=== PATIENT | male | born 1960 | race Caucasian/White ===

== ENCOUNTER 2018-12-19 09:17 | Observation (INO) | payer OTHER ==
[2018-12-19] MEDS ORDERED: NITROGLYCERIN OINT 1 INCH/GM PACKET TOPICAL STA (09:24)
--- NOTE | 2018-12-19 09:27 | ED ---
General Adult HPI - General Chief complaint: Chest Pain Stated complaint: Chest pain Time Seen by Provider: 12/19/18 09:20 Source: patient, RN notes reviewed Mode of arrival: EMS Limitations: no limitations - History of Present Illness Initial comments: This is a 58-year-old male who presents emergency Department with a past medical history significant for coronary artery disease. Patient has had bypass surgery and a stent placed. Patient also has history of high blood pressure high cholesterol. Patient since the emergency department because at 5:00 this morning he was having chest pain and some diaphoresis. Patient also states she's very short of breath at that time. Patient states since then he has taken an aspirin. Patient also states she took nitroglycerin the emesis but that did not help. Patient states currently he does not feel short of breath and denies any chest pain. Patient denies any recent fever chills or cough. Patient denies any abdominal pain. Patient denies any headache patient denies lightheadedness or dizziness. Patient denies any swelling to the legs. - Related Data Home Medications Medication Instructions Recorded Confirmed Aspirin [[place] Aspirin EC] 81 mg PO DAILY 12/19/18 12/19/18 Atenolol [Tenormin] 50 mg PO DAILY 12/19/18 12/19/18 Cyanocobalamin (Vitamin B-12) 1,000 mcg PO DAILY 12/19/18 12/19/18 [Vitamin B-12] Isosorbide Mononitrate ER [Imdur] 30 mg PO DAILY 12/19/18 12/19/18 Lisinopril 20 mg PO DAILY 12/19/18 12/19/18 Magnesium/Potassium Asporotates 1 cap PO HS 12/19/18 12/19/18 Nitroglycerin Sl Tabs [Nitrostat] 0.4 mg SUBLINGUAL Q5M PRN 12/19/18 12/19/18 Rosuvastatin Calcium [Crestor] 20 mg PO HS 12/19/18 12/19/18 Allergies Allergy/AdvReac Type Severity Reaction Status Date / Time latex Allergy Unknown Verified 12/19/18 09:41 tetracycline Allergy Unknown Verified 12/19/18 09:41 Review of Systems ROS Statement: Those systems with pertinent positive or pertinent negative responses have been documented in the HPI. ROS Other: All systems not noted in ROS Statement are negative. Past Medical History Past Medical History: Coronary Artery Disease (CAD), Chest Pain / Angina, Hyper lipidemia, Hypertension History of Any Multi-Drug Resistant Organisms: None Reported Past Surgical History: Coronary Bypass/CABG, Heart Catheterization With Stent Past Psychological History: No Psychological Hx Reported Smoking Status: Never smoker Past Alcohol Use History: None Reported Past Drug Use History: None Reported General Exam - General Exam Comments Initial Comments: GENERAL: Patient is well-developed and well-nourished. Patient is nontoxic and well- hydrated and is in mild distress ENT: Neck is soft and supple. No significant lymphadenopathy is noted. Oropharynx is clear. Moist mucous membranes. Neck has full range of motion without eliciting any pain. EYES: The sclera were anicteric and conjunctiva were pink and moist. Extraocular movements were intact and pupils were equal round and reactive to light. Eyelids were unremarkable. PULMONARY: Unlabored respirations. Good breath sounds bilaterally. No audible rales rhonchi or wheezing was noted. CARDIOVASCULAR: There is a regular rate and rhythm without any murmurs gallops or rubs. ABDOMEN: Soft and nontender with normal bowel sounds. No palpable organomegaly was noted. There is no palpable pulsatile mass. SKIN: Skin is clear with no lesions or rashes and otherwise unremarkable. NEUROLOGIC: Patient is alert and oriented x3. Cranial nerves II through XII are grossly intact. Motor and sensory are also intact. Normal speech, volume and content. Symmetrical smile. MUSCULOSKELETAL: Normal extremities with adequate strength and full range of motion. No lower extremity swelling or edema. No calf tenderness. LYMPHATICS: No significant lymphadenopathy is noted PSYCHIATRIC: Normal psychiatric evaluation. Limitations: no limitations Course Vital Signs 12/19/18 12/19/18 09:18 10:00 Temperature 99.0 F Pulse Rate 67 71 Respiratory 18 18 Rate Blood Pressure 141/97 128/81 O2 Sat by Pulse 94 L 95 Oximetry Medical Decision Making - Medical Decision Making EKG shows sinus rhythm at 67 bpm MI interval 216 QRS is 106 QT interval 408 QTC is 431 per patient's EKG shows no ST segment elevation. Patient has Q waves in 3 and aVF as well as inverted T waves in those leads. Her chest x-ray shows no acute abnormality. Patient has been chest pain-free throughout his ED stay. Patient received nitroglycerin here and already took aspirin prior to arrival. I started the patient heparin for unstable angina. I spoke with some physicians agreed to admit the patient admitted the patient consult to cardiology. I continued heparin and aspirin and Nitropaste on the floor. - Lab Data Result diagrams: 12/19/18 09:28 12/19/18 09:28 Lab Results 12/19/18 12/19/18 12/19/18 Range/Units 09:28 09:28 09:28 WBC 10.7 H (3.8-10.6) k/uL RBC 5.10 (4.30-5.90) m/uL Hgb 14.6 (13.0-17.5) gm/dL Hct 42.8 (39.0-53.0) % MCV 83.9 (80.0-100.0) fL MCH 28.7 (25.0-35.0) pg MCHC 34.1 (31.0-37.0) g/dL RDW 15.1 (11.5-15.5) % Plt Count 264 (150-450) k/uL Neutrophils % 83 % Lymphocytes % 7 % Monocytes % 4 % Eosinophils % 5 % Basophils % 0 % Neutrophils # 8.9 H (1.3-7.7) k/uL Lymphocytes # 0.8 L (1.0-4.8) k/uL Monocytes # 0.4 (0-1.0) k/uL Eosinophils # 0.5 (0-0.7) k/uL Basophils # 0.0 (0-0.2) k/uL PT 10.8 (9.0-12.0) sec INR 1.0 (<1.2) APTT 23.5 (22.0-30.0) sec Sodium 143 (137-145) mmol/L Potassium 4.8 (3.5-5.1) mmol/L Chloride 110 H (98-107) mmol/L Carbon Dioxide 26 (22-30) mmol/L Anion Gap 7 mmol/L BUN 15 (9-20) mg/dL Creatinine 0.88 (0.66-1.25) mg/dL Est GFR (CKD-EPI)AfAm >90 (>60 ml/min/1.73 sqM) Est GFR (CKD-EPI)NonAf >90 (>60 ml/min/1.73 sqM) Glucose 116 H (74-99) mg/dL Calcium 9.4 (8.4-10.2) mg/dL Magnesium 2.1 (1.6-2.3) mg/dL Total Bilirubin 0.8 (0.2-1.3) mg/dL AST 26 (17-59) U/L ALT 31 (21-72) U/L Alkaline Phosphatase 60 (38-126) U/L Troponin I (0.000-0.034) ng/mL Total Protein 7.2 (6.3-8.2) g/dL Albumin 4.4 (3.5-5.0) g/dL 12/19/18 Range/Units 09:28 WBC (3.8-10.6) k/uL RBC (4.30-5.90) m/uL Hgb (13.0-17.5) gm/dL Hct (39.0-53.0) % MCV (80.0-100.0) fL MCH (25.0-35.0) pg MCHC (31.0-37.0) g/dL RDW (11.5-15.5) % Plt Count (150-450) k/uL Neutrophils % % Lymphocytes % % Monocytes % % Eosinophils % % Basophils % % Neutrophils # (1.3-7.7) k/uL Lymphocytes # (1.0-4.8) k/uL Monocytes # (0-1.0) k/uL Eosinophils # (0-0.7) k/uL Basophils # (0-0.2) k/uL PT (9.0-12.0) sec INR (<1.2) APTT (22.0-30.0) sec Sodium (137-145) mmol/L Potassium (3.5-5.1) mmol/L Chloride (98-107) mmol/L Carbon Dioxide (22-30) mmol/L Anion Gap mmol/L BUN (9-20) mg/dL Creatinine (0.66-1.25) mg/dL Est GFR (CKD-EPI)AfAm (>60 ml/min/1.73 sqM) Est GFR (CKD-EPI)NonAf (>60 ml/min/1.73 sqM) Glucose (74-99) mg/dL Calcium (8.4-10.2) mg/dL Magnesium (1.6-2.3) mg/dL Total Bilirubin (0.2-1.3) mg/dL AST (17-59) U/L ALT (21-72) U/L Alkaline Phosphatase (38-126) U/L Troponin I <0.012 (0.000-0.034) ng/mL Total Protein (6.3-8.2) g/dL Albumin (3.5-5.0) g/dL Critical Care Time Critical Care Time: Yes Total Critical Care Time: 35 Disposition Clinical Impression: Unstable angina pectoris Disposition: ADMITTED IP TO THIS HOSP Referrals: Rodolfo Shukla DO [Primary Care Provider] - 1-2 days Time of Disposition: 10:37
[2018-12-19 09:37] LABS: Basophils % (A) 0 %; Eosinophils # (A) 0.5 k/uL (0-0.7); Eosinophils % (A) 5 %; HCT 42.8 % (39.0-53.0); HGB 14.6 gm/dL (13.0-17.5); Lymphocytes # (A) 0.8 k/uL (1.0-4.8); Lymphocytes % (A) 7 %; MCH 28.7 pg (25.0-35.0); MCHC 34.1 g/dL (31.0-37.0); MCV 83.9 fL (80.0-100.0); Monocytes # (A) 0.4 k/uL (0-1.0); Monocytes % (A) 4 %; Neutrophils # (A) 8.9 k/uL (1.3-7.7); Neutrophils % (A) 83 %; Platelet Count 264 k/uL (150-450); RDW 15.1 % (11.5-15.5); WBC 10.7 k/uL (3.8-10.6)
--- NOTE | 2018-12-19 09:38 | XR ---
EXAMINATION TYPE: XR chest 2V DATE OF EXAM: 12/19/2018 HISTORY: Chest Pain. REFERENCE: NONE. FINDINGS: There has been a midline sternotomy. There is some increased density overlying the right fifth rib posteriorly. The remainder the lungs ar e clear. Pleural space are clear. Heart size upper limits of normal. IMPRESSION: 1. AREA OF INCREASED DENSITY OVERLYING THE RIGHT FIFTH RIB POSTERIORLY MAY REPRESENT A PATCH OF PNEUM ONIA. FOLLOW-UP TO RESOLUTION WOULD BE SUGGESTED. 2. BORDERLINE CARDIOMEGALY.
[2018-12-19 09:46] LABS: Partial Thromboplastin Time 23.5 sec (22.0-30.0); Prothrombin Time 10.8 sec (9.0-12.0)
[2018-12-19 09:50] LABS: ALT 31 U/L (21-72); AST 26 U/L (17-59); Albumin 4.4 g/dL (3.5-5.0); Alkaline Phosphatase 60 U/L (38-126); Anion Gap 7 mmol/L; Blood Urea Nitrogen 15 mg/dL (9-20); Calcium 9.4 mg/dL (8.4-10.2); Carbon Dioxide 26 mmol/L (22-30); Chloride 110 mmol/L (98-107); Glucose 116 mg/dL (74-99); Magnesium 2.1 mg/dL (1.6-2.3); Potassium 4.8 mmol/L (3.5-5.1); Sodium 143 mmol/L (137-145); Total Bilirubin 0.8 mg/dL (0.2-1.3); Total Protein 7.2 g/dL (6.3-8.2)
[2018-12-19] MEDS ORDERED: HEPARIN SODIUM,PORCINE 5,000 UNIT/ML 1 ML VIAL IV ONE (10:11)
[2018-12-19] MEDS ORDERED: HEPARIN SOD,PORK IN 0.45% NACL 25,000 UNIT in 0.45% NACL 1 250ML.BAG IV SCH (10:15)
[2018-12-19] MEDS ORDERED: NITROGLYCERIN SL TABS 0.4 MG TAB SUBLINGUAL PRN (10:37)
--- NOTE | 2018-12-19 11:40 | P.HPIM ---
History of Present Illness H&P Date: 12/19/18 Chief Complaint: Chest pain 58-year-old male with PMH of CAD status post CABG in 2018, hypertension, hyperlipidemia presents the ED for chest pain. Patient complains of chest pressure as a 5 AM this morning. Pain is constant and steady. Patient describes the pain as "elephant sitting on my chest". Pain was 8-9 out of 10 on onset but is now 1 out of 10 in severity. Patient denies any radiation of pain. No alleviating or aggravating factors. 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 Chest pain is associated with shortness of breath and some lightheadedness as he was going to put his socks on. Patient reports undergoing stent placement in 2006 which migrated leading to HI and CABG in July 2018 in [place]. Patient reports the pain to be similar to that of his previous heart attack. Patient denies any headache, lower extremity edema, nausea, vomiting, fever, cough, palpitations, changes in urination or bowel habits. Patient denies any numbness/weakness/tingling of the extremities. In the ED, CBC showed a leukocytosis of 10.7. Coagulation panel was negative. CMP showed a chloride of 110 and glucose of 116. Troponin was less than 0.012, EKG showing sinus rhythm with first-degree AV block. Chest x-ray shows area inc reased density over the right fifth rib, possible pneumonia. Patient was started on a heparin drip and admitted for unstable angina, cardiology on consult. Review of Systems Pertinent positives and negatives as discussed in HPI, a complete review of sys tems was performed and all other systems are negative. Past Medical History Past Medical History: Coronary Artery Disease (CAD), Chest Pain / Angina, Hyperlipidemia, Hypertension History of Any Multi-Drug Resistant Organisms: None Reported Past Surgical History: Coronary Bypass/CABG, Heart Catheterization With Stent Past Psychological History: No Psychological Hx Reported Smoking Status: Never smoker Past Alcohol Use History: None Reported Past Drug Use History: None Reported Medications and Allergies Home Medications Medication Instructions Recorded Confirmed Type Aspirin [[place] Aspirin EC] 81 mg PO DAILY 12/19/18 12/19/18 History Atenolol [Tenormin] 50 mg PO DAILY 12/19/18 12/19/18 History Cyanocobalamin (Vitamin B-12) 1,000 mcg PO DAILY 12/19/18 12/19/18 History [Vitamin B-12] Isosorbide Mononitrate ER [Imdur] 30 mg PO DAILY 12/19/18 12/19/18 History Lisinopril 20 mg PO DAILY 12/19/18 12/19/18 History Magnesium/Potassium Asporotates 1 cap PO HS 12/19/18 12/19/18 History Nitroglycerin Sl Tabs [Nitrostat] 0.4 mg SUBLINGUAL Q5M PRN 12/19/18 12/19/18 History Rosuvastatin Calcium [Crestor] 20 mg PO HS 12/19/18 12/19/18 History Allergies Allergy/AdvReac Type Severity Reaction Status Date / Time latex Allergy Unknown Verified 12/19/18 09:41 tetracycline Allergy Unknown Verified 12/19/18 09:41 Physical Exam Vitals: Vital Signs Temp Pulse Resp BP Pulse Ox 12/19/18 11:00 68 18 131/87 96 12/19/18 10:00 73 16 141/97 96 12/19/18 09:18 99.0 F 67 18 141/97 94 L Intake and Output 12/18/18 12/19/18 12/19/18 22:59 06:59 14:59 Other: Weight 96.162 kg General: [non toxic], [no distress], [appears at stated age] Derm: [warm], [dry], [facial flushing] Head: [atraumatic], [normocephalic], [symmetric] Eyes: [EOMI], [no lid lag], [anicteric sclera] Mouth: [no lip lesion], [mucus membranes moist] Cardiovascular: [S1S2 reg], [no murmur], [positive DP pulse bilateral], [chest wall nontender to palpation] Lungs: [CTA bilateral], [no rhonchi, no rales] , [no accessory muscle use] Abdominal: [soft], [ nontender to palpation], [no guarding], [no appreciable organomegaly] Ext: [no gross muscle atrophy], [no edema], [no contractures] Neuro: [ CN II-XI grossly intact], [no focal neuro deficits] Psych: [Alert], [oriented], [appropriate affect] Results CBC & Chem 7: 12/19/18 09:28 12/19/18 09:28 Labs: Abnormal Lab Results - Last 24 Hours (Table) 12/19/18 12/19/18 Range/Units 09:28 09:28 WBC 10.7 H (3.8-10.6) k/uL Neutrophils # 8.9 H (1.3-7.7) k/uL Lymphocytes # 0.8 L (1.0-4.8) k/uL Chloride 110 H (98-107) mmol/L Glucose 116 H (74-99) mg/dL Thrombosis Risk Factor Assmnt - Choose All That Apply Any of the Below Risk Factors Present?: Yes Each Factor Represents 1 point: Age 41-60 years, Obesity (BMI >25) Thrombosis Risk Factor Assessment Total Risk Factor Score: 2 Thrombosis Risk Factor Assessment Level: Low Risk Assessment and Plan Assessment: Assessment and Plan Chest pain, atypical, plans to rule out ACS based on risk factors CAD status post stent and CABG Hypertension Hyperlipidemia Overweight Previous smoker Musculoskeletal versus ACS. Risk factors include previous HI, hypertension, hyperlipidemia, obesity and previous history of smoking. Chest x-ray showing opacity over the fifth rib. Troponin was less than 0.012, EKG showing sinus rhythm with first-degree AV block. Plan: Started on heparin drip. Continue aspirin. Continue rosuvastatin. Continue atenolol. Trend 2 Trop/EKG to rule out ACS. Follow cardiology recommendations. Telemetry monitoring. We'll not order echocardiogram as patient states recently done in cardiology clinic in November 2018. Plan: Management as above. BP 131/87. Plan: Continue atenolol, isosorbide mononitrate, lisinopril. Monitor vitals, adjust medications as necessary. Plan: Continue rosuvastatin. Follow lipid panel. BMI 28.8. Plan: Structured weight loss program. History of smoking 4 packs a day for 10-11 years. DVT prophylaxis: [Heparin drip] Discussed with: [ED physician, patient and family] Anticipated discharge: [Tomorrow] Anticipated discharge place: [Home] A total of [30] minutes was spent on the care of this complex patient more than 50% of the time was spent in counseling and care coordination. Patient will like to remain full code. He names his Lynette the decision maker in the case that he can't make decisions for himself.
--- NOTE | 2018-12-19 15:18 | P.CRDCN ---
History of Present Illness Consult date: 12/19/18 Chief complaint: Chest discomfort History of present illness: This is a pleasant 58-year-old gentleman who I follow in the office as an outpatient with a past medical history significant for coronary artery disease and status post MALONE to LAD in 2018 was performed at [facility], hypertension, dyslipidemia, and history of valvular heart disease, presented to the hospital complaining of chest discomfort. He was in his usual state of health until this early morning babysitter when he woke up at 5:00 to go to the charge but at that point he started experiencing chest pressure, in the mid of the chest, described as an elephant sitting on the chest, without any radiation to the arm or neck or shoulders, and without any associated symptoms of shortness of breath, sweating, dizziness or lightheadedness, or syncope. The patient states for the last sever al days, he has been experiencing chest pressure with exertion. He stated that the pressure was very similar to what he had before the stenting and then the coronary arteriogram is grafting. The EKG showed sinus rhythm without any ischemic ST or T-wave abnormalities. The first set of cardiac enzymes came in to be unremarkable the chest x-ray did not show any acute abnormalities. The rest of his blood work came in to be unremarkable. Past Medical History Past Medical History: Coronary Artery Disease (CAD), Chest Pain / Angina, Hyperlipidemia, Hypertension History of Any Multi-Drug Resistant Organisms: None Reported Past Surgical History: Coronary Bypass/CABG, Heart Catheterization With Stent, Hernia Repair, Orthopedic Surgery Additional Past Surgical History / Comment(s): lt leg surgery Date of Last Stent Placement:: 2006 Past Psychological History: No Psychological Hx Reported Smoking Status: Former smoker Past Alcohol Use History: None Reported Past Drug Use History: None Reported Medications and Allergies Home Medications Medication Instructions Recorded Confirmed Type Aspirin [[place] Aspirin EC] 81 mg PO DAILY 12/19/18 12/19/18 History Atenolol [Tenormin] 50 mg PO DAILY 12/19/18 12/19/18 History Cyanocobalamin (Vitamin B-12) 1,000 mcg PO DAILY 12/19/18 12/19/18 History [Vitamin B-12] Isosorbide Mononitrate ER [Imdur] 30 mg PO DAILY 12/19/18 12/19/18 History Lisinopril 20 mg PO DAILY 12/19/18 12/19/18 History Magnesium/Potassium Asporotates 1 cap PO HS 12/19/18 12/19/18 History Nitroglycerin Sl Tabs [Nitrostat] 0.4 mg SUBLINGUAL Q5M PRN 12/19/18 12/19/18 History Rosuvastatin Calcium [Crestor] 20 mg PO HS 12/19/18 12/19/18 History Allergies Allergy/AdvReac Type Severity Reaction Status Date / Time latex Allergy Unknown Verified 12/19/18 09:41 tetracycline Allergy Unknown Verified 12/19/18 09:41 Physical Exam Vitals: Vital Signs Temp Pulse Pulse Resp BP BP Pulse Ox 12/19/18 15:07 95 12/19/18 12:05 97.5 F L 65 16 141/81 94 L 12/19/18 11:00 68 18 131/87 96 12/19/18 10:00 73 16 141/97 96 12/19/18 09:18 99.0 F 67 18 141/97 94 L Intake and Output 12/19/18 12/19/18 12/19/18 06:59 14:59 22:59 Other: Voiding Method Toilet # Voids 1 Weight 96.162 kg - Constitutional General appearance: no acute distress - Respiratory Respiratory: bilateral: CTA - Cardiovascular Rhythm: regular Heart sounds: normal: S1, S2 Abnormal Heart Sounds: systolic murmur Results 12/19/18 09:28 12/19/18 09:28 Cardiac Enzymes 12/19/18 12/19/18 Range/Units 09:28 09:28 AST 26 (17-59) U/L Troponin I <0.012 (0.000-0.034) ng/mL Coagulation 12/19/18 Range/Units 09:28 PT 10.8 (9.0-12.0) sec APTT 23.5 (22.0-30.0) sec CBC 12/19/18 Range/Units 09:28 WBC 10.7 H (3.8-10.6) k/uL RBC 5.10 (4.30-5.90) m/uL Hgb 14.6 (13.0-17.5) gm/dL Hct 42.8 (39.0-53.0) % Plt Count 264 (150-450) k/uL Comprehensive Metabolic Panel 12/19/18 Range/Units 09:28 Sodium 143 (137-145) mmol/L Potassium 4.8 (3.5-5.1) mmol/L Chloride 110 H (98-107) mmol/L Carbon Dioxide 26 (22-30) mmol/L BUN 15 (9-20) mg/dL Creatinine 0.88 (0.66-1.25) mg/dL Glucose 116 H (74-99) mg/dL Calcium 9.4 (8.4-10.2) mg/dL AST 26 (17-59) U/L ALT 31 (21-72) U/L Alkaline Phosphatase 60 (38-126) U/L Total Protein 7.2 (6.3-8.2) g/dL Albumin 4.4 (3.5-5.0) g/dL Current Medications Generic Name Dose Route Start Last Admin Trade Name Freq PRN Reason Stop Dose Admin Aspirin 325 mg 12/20/18 09:00 Aspirin PO DAILY [facility] Aspirin 81 mg 12/20/18 09:00 Aspirin PO DAILY [facility] Atenolol 50 mg 12/20/18 09:00 Tenormin PO DAILY [facility] Atorvastatin Calcium 40 mg 12/19/18 21:00 Lipitor PO HS [facility] Heparin Sodium/Sodium Chloride 250 mls @ 10.001 mls/hr 12/19/18 10:15 12/19/18 10:36 25,000 unit/ Sodium Chloride IV 10.4 units/kg/hr .Q24H JAK 10.001 mls/hr Administration Protocol 10.4 UNITS/KG/HR Isosorbide Mononitrate 30 mg 12/20/18 09:00 Imdur PO DAILY [facility] Lisinopril 20 mg 12/20/18 09:00 Zestril PO DAILY [facility] Nitroglycerin 1 inch 12/19/18 12:00 Nitro-Bid Oint TOPICAL Q6HR [facility] Nitroglycerin 0.4 mg 12/19/18 10:37 Nitrostat SUBLINGUAL Q5M PRN Chest Pain Intake and Output 12/19/18 12/19/18 12/19/18 06:59 14:59 22:59 Other: Voiding Method Toilet # Voids 1 Weight 96.162 kg Patient Weight 12/20/18 06:59 Weight 96.162 kg 12/19/18 09:28 12/19/18 09:28 Assessment and Plan Assessment: Assessment #1 intermittent episodes of chest pressure concerning for severe underlying coronary artery disease. #2 known coronary artery disease and status post a stenting and CABG #3 hypertension #4 dyslipidemia Plan #1 giving the nature of the symptoms which is exertional, I did recommend proceeding with coronary angiogram #2 follow-up with the patient. Thank you for allowing us participate in his care
[2018-12-19] MEDS: NITROGLYCERIN OINT 1 INCH/GM PACKET TOPICAL SCH ×3 (15:50→23:31)
[2018-12-19] MEDS ORDERED: ATORVASTATIN 40 MG TAB PO SCH (21:00)
[2018-12-19 23:25] LABS: Cholesterol 127 mg/dL (<200); HDL Cholesterol 39 mg/dL (40-60); LDL Cholesterol,Calculated 65 mg/dL (0-99); Triglycerides 114 mg/dL (<150)
[2018-12-20] MEDS: NITROGLYCERIN OINT 1 INCH/GM PACKET TOPICAL SCH ×3 (03:39→18:10)
[2018-12-20 07:21] VITALS: RESP 18
[2018-12-20] MEDS ORDERED: ALPRAZolam 0.25 MG TAB PO PRN (07:46)
[2018-12-20] MEDS ORDERED: ALPRAZolam 0.5 MG TAB PO PRN (07:46)
[2018-12-20] MEDS ORDERED: SODIUM CHLORIDE 0.9% 1,000 ML in EMPTY BAG 1 BAG IV ONE (07:46)
[2018-12-20] MEDS ORDERED: ISOSORBIDE MONONITRATE ER 30 MG TAB.ER.24H PO SCH (09:00)
[2018-12-20] MEDS ORDERED: ATENOLOL 50 MG TAB PO SCH (09:00)
[2018-12-20] MEDS ORDERED: ASPIRIN 325 MG TAB PO SCH (09:00)
[2018-12-20] MEDS ORDERED: LISINOPRIL 20 MG TAB PO SCH (09:00)
[2018-12-20] MEDS ORDERED: ASPIRIN 81 MG PO SCH (09:00)
[2018-12-20] MEDS ORDERED: SODIUM CHLORIDE 0.9% 100 ML BAG ONE (09:19)
[2018-12-20] MEDS ORDERED: ADENOSINE 3 MG/ML 4 ML VIAL IVP ONE (09:19)
--- NOTE | 2018-12-20 11:10 | P.PN ---
Subjective Chart was reviewed. Pt came in for pressure like chest pain that resembled CP from when he had NV. He is currently chest pain-free. No shortness of breath or nausea. REVIEW OF SYSTEMS: CONSTITUTIONAL: No fever or chills HEENT: No changes in vision or voice CARDIOVASCULAR: no chest pain or abnormal heart beats, or any swelling in ankles or feet. RESPIRATORY: No wheezing or coughing. GASTROINTESTINAL: No abdominal pain, no nausea no vomiting no constipation or diarrhea GENITOURINARY: no any urinary urgency, frequency or burning, and there has been no blood in her urine. no flank pain. MUSCULOSKELETAL: She notes full range of motion of all her joints without pain or swelling. NEUROLOGICAL: , no headache. no vision changes, or fainting. No numbness or tingling. Objective - Vital Signs Vital signs: Vital Signs Temp 97.8 F 12/20/18 07:00 Pulse 66 12/20/18 08:00 Resp 18 12/20/18 08:00 BP 150/79 12/20/18 07:00 Pulse Ox 96 12/20/18 07:00 Intake & Output 12/19/18 12/20/18 12/20/18 18:59 06:59 18:59 Intake Total 183.673 103.097 Balance 183.673 103.097 Weight 96.162 kg Intake: Intake, IV Titration 63.673 103.097 Amount Heparin Sod,Pork in 0.45% 63.673 103.097 NaCl 25,000 unit In 0.45 % NaCl 1 250ml.bag @ 10.4 UNITS/KG/HR 10.001 mls/ hr IV .Q24H [facility] Rx#: [id number] Oral 120 Other: Voiding Method Toilet Toilet Toilet # Voids 1 1 - Exam Vital Signs: I have reviewed the vital signs. GENERAL: Well-nourished, Well-developed , no apparent distress, cooperative CVS: +S1/S2, No murmurs or gallops. Peripheral pulses 2+ and equal in all extremities. RESP: Unlabored respiratory effort. Clear to auscultation bilaterally. Abdomen: Bowel sounds present in all 4 quadrants, Soft to palpation, Nontender/ Nondistended, No hepatosplenomegaly, no hernias or masses, no CVA tnderness Musculoskeletal: Extremities w/o deformity, No cyanosis or clubbing, no joint swelling Psych: Awake, Alert, & Oriented (AAO) x3 Appropriate mood and affect - Labs CBC & Chem 7: 12/19/18 09:28 12/19/18 09:28 Labs: Abnormal Lab Results - Last 24 Hours (Table) 12/19/18 12/19/18 12/19/18 Range/Units 09:28 15:58 22:43 APTT 32.2 H 43.4 H (22.0-30.0) sec HDL Cholesterol 39 L (40-60) mg/dL 12/20/18 Range/Units 07:33 APTT 49.6 H (22.0-30.0) sec HDL Cholesterol (40-60) mg/dL Assessment and Plan Assessment: Assessment: 1. Chest pain 2. Coronary artery disease 3. Hypertension 4. Hyperlipidemia Plan: Cardiology has evaluated the patient and they we'll proceed with cardiac catheterization this morning. Continue current medications.
[2018-12-20] MEDS ORDERED: IV FLUID CONTINUATION 1,000 ML IV ONE (11:19)
[2018-12-20] MEDS ORDERED: MIDAZOLAM (PF) 2 MG/2 ML VIAL IV ONE ×2 (11:28→12:10)
[2018-12-20] MEDS ORDERED: LIDOCAINE 1% INJ 10MG/ML (20 ML MDV) SQ ONE ×2 (11:30→11:32)
[2018-12-20] MEDS ORDERED: HYDROmorphone 1 MG/ML 1 ML SYRINGE IVP ONE (11:35)
[2018-12-20] MEDS ORDERED: BIVALIRUDIN BOLUS 250 MG/50 ML IV ONE (12:00)
[2018-12-20] MEDS ORDERED: BIVALIRUDIN 250 MG in SODIUM CHLORIDE 0.9% 50 ML IV ONE (12:02)
[2018-12-20] MEDS ORDERED: IOPAMIDOL-370 150ML BTL INJ ONE (12:12)
[2018-12-20] MEDS ORDERED: RX INFO: IV CONTRAST WAS GIVEN 1 EACH MISC MISCELLANE PRN (12:24)
[2018-12-20] MEDS ORDERED: SODIUM CHLORIDE 0.9% 1,000 ML IV SCH (12:30)
--- NOTE | 2018-12-20 12:53 | CC ---
CARDIAC CATHETERIZATION REPORT DATE OF SERVICE: 12/20/2018 PERFORMING PHYSICIAN: Alonso Kent MD, [employer]. PROCEDURE PERFORMED: 1. Selective left and right coronary angiogram. 2. Left internal mammary artery angiogram. 3. Left heart catheterization. INDICATION: This is a pleasant 58-year-old gentleman with history of coronary artery disease who underwent stenting of the LAD out of town and subsequently he underwent MALONE to LAD bypass also out of town in [place], [place] in July of 2018. Presented to the hospital complaining of chest discomfort. He was experiencing intermittent episodes of chest discomfort concerning for angina and because of that, heart catheterization was advised. APPROACH: Right common femoral artery. COMPLICATION: None. LEVEL OF SEDATION: Moderate with sedation length of 42 minutes. PROCEDURE DESCRIPTION: After obtaining an informed consent, the patient was brought to the cardiac lab nurse. The right common femoral artery was cannulated using micropuncture technique, the micropuncture wire passed easily. Then I placed a 6-Iranian sheath in the right common femoral artery. After that, I did selective right and left coronary angiogram using JL4 and JR4 catheters. Left internal mammary artery angiogram was performed using the JR4 catheter. Left heart catheterization was performed using 6-Iranian pigtail catheter. The procedure was completed without any complication. SELECTIVE CORONARY ANGIOGRAM: 1. The left main is a large caliber vessel and angiographically normal, the left main bifurcates into the circumflex, ramus intermedius, and left anterior descending artery. 2. The left circumflex is a large caliber vessel. It is a nondominant vessel. The proximal circumflex appeared to be normal and gives rise into a large OM branch which has mild disease only. The mid circumflex is normal and gives rise into second OM branch which appeared to be angiographically normal and the circumflex continued after that as a medium caliber vessel in the AV groove. 3. The ramus intermedius is a moderate caliber vessel with lesion appeared to be in the range of 50%. FFR was performed and came in to be nonischemic at 0.91. 4. The LAD, the proximal LAD appeared to have intermediate lesion in the range of 50% to 60%. This is by the bifurcation of the first diagonal branch which is a moderate caliber vessel and seems to be stented and the stent is patent. The mid LAD appeared to be angiographically normal with competitive flow from the MALONE. 5. The right coronary artery is a large caliber vessel and it is a dominant vessel and appeared to have mild diffuse disease. Bifurcates into PDA and PLV branches both appeared to be angiographically normal. CORONARY BYPASS ANGIOGRAM: The MALONE to LAD is patent. There is a branch of the MALONE was not ligated. HEMODYNAMICS: The left ventricular end-diastolic pressure was about 10 mmHg without significant gradient across the aortic valve. FFR OF THE LEFT CIRCUMFLEX: Anticoagulation was initiated using Angiomax. Subsequently, and after zeroing the Doppler wire and equalizing between the Doppler wire and the guiding catheter with an FFR per IV adenosine infusion and the FFR came in to be at 0.91, which is nonischemic. CONCLUSION: 1. Intermediate disease involving the proximal left anterior descending artery with patent stent in the first diagonal branch of the LAD. The MALONE to LAD is patent. 2. Intermediate disease involving the ramus intermedius coronary artery. FFR was performed and came in to be nonischemic at 0.91. 3. Mild disease involving the right coronary artery. POSTPROCEDURE MANAGEMENT: 1. I did advise maximize medical treatment. 2. Aggressive cholesterol control. 3. Follow up with the patient. MMODL / IJN: [id number] /
[2018-12-20 15:37] VITALS: BP 123/77; PULSE 76; TEMP 97.4
--- NOTE | 2018-12-20 16:16 | P.DS ---
Providers Date of admission: 12/19/18 10:39 Attending physician: Damaris Mcdonald MD Consults: 12/19/18 10:37 Consult Physician Urgent Consulting Provider: [facility] Consult Reason/Comments: Unstable angina Do you want consulting provider notified?: Yes Primary care physician: Rodolfo Shukla [facility] Course: Admission date: 12/19/18 Discharge date: 12/20/18 Reason for admission: chest pain Discharge diagnosis: 1. Atypical chest pain 2. CAD 3. HTN 4. HLP Consultants: Dr. Kent cardiology Procedures: cardiac catheterization : HPI: Per H&P from : "58-year-old male with PMH of CAD status post CABG in 2018, hypertension, hyperlipidemia presents the ED for chest pain. Patient complains of chest pressure as a 5 AM this morning. Pain is constant and steady. Patient describes the pain as "elephant sitting on my chest". Pain was 8-9 out of 10 on onset but is now 1 out of 10 in severity. Patient denies any radiation of pain. No alleviating or aggravating factors. 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 Chest pain is associated with shortness of breath and some lightheadedness as he was going to put his socks on. Patient reports undergoing stent placement in 2006 which migrated leading to MT and CABG in July 2018 in [place]. Patient reports the pain to be similar to that of his previous heart attack. Patient denies any headache, lower extremity edema, nausea, vomiting, fever, cough, palpitations, changes in urination or bowel habits. Patient denies any numbness/weakness/tingling of the extremities. In the ED, CBC showed a leukocytosis of 10.7. Coagulation panel was negative. CMP showed a chloride of 110 and glucose of 116. Troponin was less than 0.012, EKG showing sinus rhythm with first-degree AV block. Chest x-ray shows area increased density over the right fifth rib, possible pneumonia. Patient was started on a heparin drip and admitted for unstable angina, cardiology on consult." Hospital course: Pt was evaluated by cardiology. He underwent cardiac catheterization. Non obstructive CAD with patent stent was found and he was advised to continue medical managment. He remained chest pain free. He did report possibility of left upper pectoral mm strain at work. Denied heartburns. Pt was discharged home. no changes in medications. Patient Condition at Discharge: Good Plan - Discharge Summary New Discharge Prescriptions: Continue Aspirin [[place] Aspirin EC] 81 mg PO DAILY Magnesium/Potassium Asporotates 1 cap PO HS Isosorbide Mononitrate ER [Imdur] 30 mg PO DAILY Atenolol [Tenormin] 50 mg PO DAILY Rosuvastatin Calcium [Crestor] 20 mg PO HS Nitroglycerin Sl Tabs [Nitrostat] 0.4 mg SUBLINGUAL Q5M PRN PRN Reason: Chest Pain Lisinopril 20 mg PO DAILY Cyanocobalamin (Vitamin B-12) [Vitamin B-12] 1,000 mcg PO DAILY Discharge Medication List Aspirin [[place] Aspirin EC] 81 mg PO DAILY 12/19/18 [History] Atenolol [Tenormin] 50 mg PO DAILY 12/19/18 [History] Cyanocobalamin (Vitamin B-12) [Vitamin B-12] 1,000 mcg PO DAILY 12/19/18 [History] Isosorbide Mononitrate ER [Imdur] 30 mg PO DAILY 12/19/18 [History] Lisinopril 20 mg PO DAILY 12/19/18 [History] Magnesium/Potassium Asporotates 1 cap PO HS 12/19/18 [History] Nitroglycerin Sl Tabs [Nitrostat] 0.4 mg SUBLINGUAL Q5M PRN 12/19/18 [History] Rosuvastatin Calcium [Crestor] 20 mg PO HS 12/19/18 [History] Follow up Appointment(s)/Referral(s): Rodolfo Shukla DO [Primary Care Provider] - 1-2 days Alonso Kent MD [STAFF PHYSICIAN] - 12/28/18 11:30 am Patient Instructions/Handouts: Heart Catheterization (DC) Discharge Disposition: HOME SELF-CARE
== END 2018-12-20 18:12 | disposition home or self-care (01) ==
LOC: EC 09:17 → 1SOBS 10:39
PROVIDERS: ADMIT Family Medicine; ATTEND Family Medicine
DX: R07.89 Other chest pain (principal); I25.10 Atherosclerotic heart disease of native coronary artery without angina pectoris; E78.5 Hyperlipidemia, unspecified; R06.02 Shortness of breath; R42 Dizziness and giddiness; D72.829 Elevated white blood cell count, unspecified; R61 Generalized hyperhidrosis; E66.9 Obesity, unspecified; Z68.28 Body mass index [BMI] 28.0-28.9, adult; I25.2 Old myocardial infarction; Z79.899 Other long term (current) drug therapy; I10 Essential (primary) hypertension; Z91.040 Latex allergy status; Z88.1 Allergy status to other antibiotic agents; Z79.82 Long term (current) use of aspirin; Z95.5 Presence of coronary angioplasty implant and graft; Z95.1 Presence of aortocoronary bypass graft; Z87.891 Personal history of nicotine dependence
CPT/HCPCS: 96366 ×2; 96376; 96365; 99285; 36415; 94760; 93005; 93571; 93459; 80061; 80053; 83735; 84484; 85025; 85610; 85730 ×2; 71046; G0378 ×2; C1760; C1887; C1769 ×3; C1894; J1644 ×2; J2001; J1170; J0583; J0153; J2250; Q9967

== ENCOUNTER 2023-03-25 08:37 | Emergency (ER) | payer OTHER ==
[2023-03-25 08:43] VITALS: TEMP 98.3
[2023-03-25 09:23] LABS: Basophils % (A) 1 %; Eosinophils # (A) 0.7 k/uL (0-0.7); Eosinophils % (A) 12 %; HCT 41.8 % (39.0-53.0); HGB 14.4 gm/dL (13.0-17.5); Lymphocytes # (A) 1.2 k/uL (1.0-4.8); Lymphocytes % (A) 20 %; MCH 31.1 pg (25.0-35.0); MCHC 34.4 g/dL (31.0-37.0); MCV 90.6 fL (80.0-100.0); Mean Platelet Volume 8.1; Monocytes # (A) 0.4 k/uL (0-1.0); Monocytes % (A) 7 %; Neutrophils # (A) 3.4 k/uL (1.3-7.7); Neutrophils % (A) 59 %; Platelet Count 209 k/uL (150-450); RBC 4.62 m/uL (4.30-5.90); RDW 12.3 % (11.5-15.5); WBC 5.8 k/uL (3.8-10.6)
--- NOTE | 2023-03-25 09:35 | XR ---
EXAMINATION TYPE: XR chest 2V DATE OF EXAM: 03/25/2023 COMPARISON: 12/19/2018 HISTORY: Shortness of breath TECHNIQUE: Frontal and lateral views of the chest are obtained. FINDINGS: Scattered senescent parenchymal changes noted. Hyperinflation compatible with COPD. No evidence for infiltrate. No evidence for atelectasis. Heart size is stable. Mediastinal structures are stable and grossly unremarkable. No evidence for hilar prominence. Degenerative changes dorsal spine. IMPRESSION: 1. No evidence for acute pulmonary disease.
[2023-03-25 09:37] LABS: Partial Thromboplastin Time 23.9 sec (22.0-30.0); Prothrombin Time 10.8 sec (9.0-12.0)
[2023-03-25 09:50] LABS: ALT 28 U/L (4-49); AST 32 U/L (17-59); African American GFR (CKD) >90 (>60 ml/min/1.73 sqM); Albumin 4.1 g/dL (3.5-5.0); Alkaline Phosphatase 43 U/L (38-126); Anion Gap 7 mmol/L; Blood Urea Nitrogen 15 mg/dL (9-20); Calcium 9.4 mg/dL (8.4-10.2); Carbon Dioxide 27 mmol/L (22-30); Chloride 104 mmol/L (98-107); Glucose 111 mg/dL (74-99); Magnesium 2.2 mg/dL (1.6-2.3); Non-African American GFR(CKD) >90 (>60 ml/min/1.73 sqM); Potassium 4.4 mmol/L (3.5-5.1); Sodium 138 mmol/L (137-145); Total Bilirubin 0.7 mg/dL (0.2-1.3); Total Protein 7.1 g/dL (6.3-8.2)
[2023-03-25 09:58] LABS: NT-Pro-B-Type Natriuretic Pept 95 pg/mL
--- NOTE | 2023-03-25 11:00 | CT ---
EXAMINATION TYPE: CT chest angio for PE DATE OF EXAM: 03/25/2023 COMPARISON: None HISTORY: Chest pressure and pain CT DLP: 465 mGycm CONTRAST: CT chest with contrast and 3D reconstruction with MIP imaging is performed with IV Contrast, patient injected with 100 mL of Isovue 370. Contrast-enhanced CT of the chest was performed through the course of the pulmonary arteries with angela g and mediastinal window settings submitted. 3D reconstruction with MIP imaging was also performed. PULMONARY ARTERIES: The pulmonary arteries and their major tributaries are patent. I do not see orlando dence for sizable filling defect to suggest pulmonary embolic process. LUNGS: The lungs are clear and free of infiltrate. No evidence for atelectasis. No pulmonary nodule or mass is detected. No pleural effusion. MEDIASTINUM: Thoracic aorta is of normal caliber,however, evaluation is limited given timing of the contrast bolus. If there is concern for thoracic aortic pathology consider RUBEN. Correlate clinicall y . The heart is not enlarged. No evidence for mediastinal mass. No mediastinal lymph nodes greater than 1cm. HILAR STRUCTURES: No evidence for mass. No hilar lymph nodes greater than 1 cm. UPPER ABDOMEN: Hepatic cysts noted. IMPRESSION: 1. No evidence for Pulmonary embolism at this time.
--- NOTE | 2023-03-25 11:25 | ED ---
Chest Pain HPI - General Chief Complaint: Chest Pain Stated Complaint: chest pain for a week,swollen tender Time Seen by Provider: 03/25/23 08:53 Source: patient, RN notes reviewed Mode of arrival: ambulatory Limitations: no limitations - History of Present Illness Initial Comments: 62-year-old male presents emergency Department chief complaint of left-sided chest, rib pain. Patient states that for the last 1 week tenderness and what feels a swollen over his left pectoral region. Patient states he said no injury he denies any pleuritic pain felt short of breath but that did not last. He doesn't at days had open-heart surgery secondary to cardiac stent placement complications. Patient denies any fevers or chills denies headache or dizziness denies current nausea vomiting diarrhea constipation. Patient states only hurts if he presses over the area of his chest wall. - Related Data Home Medications Medication Instructions Recorded Confirmed Aspirin [[place] Aspirin EC] 81 mg PO DAILY 12/19/18 03/25/23 Isosorbide Mononitrate ER [Imdur] 30 mg PO HS 12/19/18 03/25/23 atenoloL [Tenormin] 50 mg PO DAILY 12/19/18 03/25/23 Lisinopril-Hctz 20-25 mg 1 tab PO DAILY 03/25/23 03/25/23 [Zestoretic 20-25] Allergies Allergy/AdvReac Type Severity Reaction Status Date / Time latex Allergy Rash/Hives Verified 03/25/23 09:52 tetracycline Allergy Rash/Hives Verified 03/25/23 09:52 Review of Systems ROS Statement: Those systems with pertinent positive or pertinent negative responses have been documented in the HPI. ROS Other: All systems not noted in ROS Statement are negative. EKG Findings - EKG Comments: EKG Findings:: EKG performed at 18:55 sinus bradycardia with first-degree block rate of 72 NE 254 QRS 121 QT/QTC 460/439 - EKG Results: EKG: interpreted by LIZZY Past Medical History Past Medical History: Coronary Artery Disease (CAD), Chest Pain / Angina, Hyperlipidemia, Hypertension History of Any Multi-Drug Resistant Organisms: None Reported Past Surgical History: Coronary Bypass/CABG, Heart Catheterization With Stent, Hernia Repair, Orthopedic Surgery Additional Past Surgical History / Comment(s): lt leg surgery, stent replacement 2017 Date of Last Stent Placement:: 2006 Past Psychological History: No Psychological Hx Reported Smoking Status: Never smoker Past Alcohol Use History: Occasional Past Drug Use History: None Reported General Exam Limitations: no limitations General appearance: alert, in no apparent distress Head exam: Present: atraumatic, normocephalic, normal inspection Eye exam: Present: normal appearance, PERRL, EOMI. Absent: scleral icterus, conjunctival injection, periorbital swelling ENT exam: Present: normal exam, normal oropharynx, mucous membranes moist Neck exam: Present: normal inspection, full ROM. Absent: tenderness, meningismus, lymphadenopathy Respiratory exam: Present: normal lung sounds bilaterally, chest wall tenderness (Left anterior chest wall, pectoral region tenderness with palpation no rashes noted), decreased breath sounds. Absent: respiratory distress, wheezes, rales, rhonchi, stridor Cardiovascular Exam: Present: regular rate, normal rhythm, normal heart sounds. Absent: systolic murmur, diastolic murmur, rubs, gallop, clicks GI/Abdominal exam: Present: soft, normal bowel sounds. Absent: distended, tenderness, guarding, rebound, rigid Back exam: Absent: CVA tenderness (R), CVA tenderness (L) Neurological exam: Present: alert Skin exam: Present: warm, dry, intact, normal color. Absent: rash Course Vital Signs 03/25/23 03/25/23 03/25/23 08:38 09:01 10:00 Temperature 98.3 F Pulse Rate 56 L 53 L 53 L Respiratory 18 18 14 Rate Blood Pressure 148/85 123/86 123/79 O2 Sat by Pulse 99 97 Oximetry 03/25/23 03/25/23 03/25/23 11:00 12:00 12:35 Temperature Pulse Rate 51 L 53 L 55 L Respiratory 14 14 18 Rate Blood Pressure 122/90 128/84 134/77 O2 Sat by Pulse 97 100 94 L Oximetry Procedures - [place] Protocol (Time Out) Nurse: Gwen Bustos Chest Pain MDM - MDM Was pt. sent in by a medical professional or institution (MUKESH Mathur, [employer], urgent care, hospital, or halfway...) When possible be specific @ -No Did you speak to anyone other than the patient for history (EMS, parent, family, police, friend...)? What history was obtained from this source @ -No Did you review nursing and triage notes (agree or disagree)? Why? @ -I reviewed and agree with nursing and triage notes Were old charts reviewed (outside hosp., previous admission, EMS record, old EKG, old radiological studies, urgent care reports/EKG's, halfway records)? Report findings @ -No old charts were reviewed Differential Diagnosis (chest pain, altered mental status, abdominal pain women, abdominal pain men, vaginal bleeding, weakness, fever, dyspnea, syncope, headache, dizziness, GI bleed, back pain, seizure, CVA, palpatations, mental health, musculoskeletal)? @ -nDifferential Chest Pain: Stable Angina, Unstable Angina, STEMI, NSTEMI Aortic Dissection, Pneumothorax, Musculoskeletal, Esophageal Spasm GERD, Cholecystitis, Pancreatitis, Zoster, this is not meant to be an all-inclusive list. ble EKG interpreted by me (3pts min.). @ -As above X-rays interpreted by me (1pt min.). @ -Chest x-ray shows no acute cardiopulmonary process. CT interpreted by me (1pt min.). @ -CT angios for PE is negative for acute PE U/S interpreted by me (1pt. min.). @ -None done What testing was considered but not performed or refused? (CT, X-rays, U/S, labs)? Why? @ -None What meds were considered but not given or refused? Why? @ -None Did you discuss the management of the patient with other professionals (professionals i.e. , PA, [employer], lab, RT, psych nurse, social work administrator, production clerk, teacher, commercial loan officer, case filler)? Give summary @ -No Was smoking cessation discussed for >3mins.? @ -No Was critical care preformed (if so, how long)? @ -No Were there social determinants of health that impacted care today? How? (Homelessness, low income, unemployed, alcoholism, drug addiction, transportation, low edu. Level, literacy, decrease access to med. care, senior living, rehab)? @ -No Was there de-escalation of care discussed even if they declined (Discuss DNR or withdrawal of care, Hospice)? DNR status @ -No What co-morbidities impacted this encounter? (DM, HTN, Smoking, COPD, CAD, Cancer, CVA, ARF, Chemo, Hep., AIDS, mental health diagnosis, sleep apnea, morbid obesity)? @ -CAD, hypertension Was patient admitted / discharged? Hospital course, mention meds given and route, prescriptions, significant lab abnormalities, going to OR and other pertinent info. @ -Discharge patient symptoms have been present for 1 week. Patient did have workup including labs, x-ray and EKG. Patient's d-dimer was elevated CT showing no acute evidence of PE. Patient symptoms are very reproducible with chest wall without evidence of rash. We did discuss admission at this time. Patient had negative second troponin and symptoms have been present for 1 week. Patient felt comfortable with discharge patient had cardiology appointment made patient will return for any worsening change in symptoms. Undiagnosed new problem with uncertain prognosis? @ -No Drug Therapy requiring intensive monitoring for toxicity (Heparin, Nitro, Insulin, Cardizem)? @ -No Were any procedures done? @ -No Diagnosis/symptom? @ -Chest wall pain Acute, or Chronic, or Acute on Chronic? @ -Acute Uncomplicated (without systemic symptoms) or Complicated (systemic symptoms)? @ -complicated Side effects of treatment? @ -No Exacerbation, Progression, or Severe Exacerbation? @ -No Poses a threat to life or bodily function? How? (Chest pain, [place], [place], pneumonia, PE, COPD, DKA, ARF, appy, cholecystitis, CVA, Diverticulitis, Homicidal, Suicidal, threat to staff... and all critical care pts) @ -No Disposition Clinical Impression: Chest wall pain Disposition: HOME SELF-CARE Condition: Stable Instructions (If sedation given, give patient instructions): Chest Wall Pain (ED) Additional Instructions: Please return to the Emergency Department if symptoms worsen or any other concerns. Is patient prescribed a controlled substance at d/c from ED?: No Referrals: Alonso Kent MD [STAFF PHYSICIAN] - 04/09/23 2:00 pm (Appointment at [facility] Abiola Astorga MD [Primary Care Provider] - 1-2 days Time of Disposition: 12:49
[2023-03-25 12:38] VITALS: BP 134/77; PULSE 55; RESP 18
== END 2023-03-25 13:02 | disposition home or self-care (01) ==
LOC: EC 08:37
DX: R07.89 Other chest pain (principal); I25.10 Atherosclerotic heart disease of native coronary artery without angina pectoris; I10 Essential (primary) hypertension; Z91.040 Latex allergy status; Z88.8 Allergy status to other drugs, medicaments and biological substances; Z79.82 Long term (current) use of aspirin; Z79.899 Other long term (current) drug therapy
CPT/HCPCS: 36415; 93005; 85379; 83880; 80053; 83735; 84484; 85025; 85610; 85730; 71046; 71275; 99285; Q9967